=== PATIENT | female | born 2005 | race Caucasian/White ===

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

== ENCOUNTER 2024-09-28 09:35 | Outpatient (CLI) | payer BC, SELFPAY | END 2024-09-28 09:36 | disposition home or self-care (01) | LOC: NFLDREF 10-03 18:24 | PROVIDERS: PCP Family Medicine; Referring Provider Family Medicine; Visit Provider Family Medicine | DX: Z11.1 Encounter for screening for respiratory tuberculosis (principal) | CPT/HCPCS: 86480 ==